=== PATIENT | female | born 1965 | race Caucasian/White ===

== ENCOUNTER 2017-07-07 08:05 | Day surgery (SDC) | payer OTHER ==
[~2017-07-07] VITALS: Ht 154.9 cm; Wt 51.9 kg
[2017-07-07 08:40] VITALS: Ht 154.9 cm; Wt 51.9 kg
[2017-07-07] MEDS ORDERED: SERT25TA83 PO (08:50)
[2017-07-07] MEDS ORDERED: OMEP20CA16 PO (08:50)
[2017-07-07 09:17] VITALS: BP 122/54; PULSE 66; RESP 20
--- NOTE | 2017-07-07 10:20 | OPPN ---
Date/Time of Note Date/Time of Note DATE: 07/07/17 TIME: 10:19 Proc Note GI Procedure Date 07/07/17 Indication: screening/surveillance Pre-procedure Diagnosis screening colonoscopy Post-procedure Diagnosis melanosis hemorrhoids Procedure Performed: Colonoscopy Surgeon see signature line Baby Sitter none Anesthesia Type: moderate sedation Tourniquet Time none EBL none Transfusion required none Biopsy 1: none Grafts/Implants none Tubes/Drains none Complication(s) none Disposition: home Procedure Description under mod sedation colonoscopy showed melanosis coli and ex hemorrhopids JOSEFA LOPEZ MD Jul 07, 2017 10:20
[2017-07-07] MEDS ORDERED: FENTAnyl 50 MCG/ML VIAL ONE ×2 (10:24)
[2017-07-07] MEDS ORDERED: MIDAZOLAM 1 MG/ML 2 ML INJ ONE ×2 (10:24)
--- NOTE | 2017-07-08 07:16 | GILP ---
DATE OF PROCEDURE: 07/07/2017 PREOPERATIVE DIAGNOSIS: Screening colonoscopy to rule out colon polyps. POSTOPERATIVE DIAGNOSES: 1. Melanosis coli. 2. Minimal external hemorrhoids. DESCRIPTION OF PROCEDURE: After the informed written consent was obtained, the patient was given 3 mg Versed, 125 mcg of fentanyl. When the patient became somnolent, the Olympus video colonoscope wa s introduced into the rectum and scope was advanced all the way to the cecum. The entire colon appe ared perfectly normal with no mucosal abnormality. Scope at this time was withdrawn and on the way out, retroflexion was performed. Some skin tag was noted. On the way out, minimal external hemorrh oids were noted and the procedure was terminated. PLAN: Recommend repeat colonoscopy in 10 years. Dictated By: JOSEFA HONG/BRUCE Conf#: [id number] DID#: [id number]
== END 2017-07-07 18:16 | disposition home or self-care (01) ==
LOC: GIL 08:05
PROVIDERS: ATTEND Internal Medicine Gastroenterology
DX: Z12.11 Encounter for screening for malignant neoplasm of colon (principal); K64.8 Other hemorrhoids; K63.89 Other specified diseases of intestine
CPT/HCPCS: 45378; J2250; J3010; Z7610